=== PATIENT | male | born 1965 | race Caucasian/White ===

== ENCOUNTER 2024-07-29 11:53 | Emergency (ER) | payer BC, OTHER ==
[2024-07-29] MEDS: Bupivacaine 0.5% 10 ML SDV INJECT ONE (15:48)
[2024-07-29] MEDS: Cephalexin 500 MG Cap PO ONE (15:48)
[2024-07-29] MEDS: Diphtheria,Pertussis(Acell),Tetanus Vaccine 0.5 ML Syringe IM ONE (15:48)
[2024-07-29] MEDS: Lidocaine 1% 10 ML MDV INJECT ONE (15:48)
[2024-07-29 19:54] VITALS: BP 143/82; PULSE 58
== END 2024-07-29 16:30 | disposition home or self-care (01) ==
LOC: JD.ED 11:53
DX: S62.633A Displaced fracture of distal phalanx of left middle finger, initial encounter for closed fracture (principal); I10 Essential (primary) hypertension; E78.00 Pure hypercholesterolemia, unspecified; Z90.49 Acquired absence of other specified parts of digestive tract; Z79.899 Other long term (current) drug therapy; Z23 Encounter for immunization; W23.0XXA Caught, crushed, jammed, or pinched between moving objects, initial encounter; Y99.0 Civilian activity done for income or pay
CPT/HCPCS: 12001; 73140; 90471; 90715; 99283; A9270; J0665; J3490